=== PATIENT | male | born 1955 ===

== ENCOUNTER 2021-08-12 13:17 | Outpatient (CLI) | payer OTHER | END 2021-08-12 13:18 | disposition home or self-care (01) | LOC: LAB 13:17 | PROVIDERS: ATTEND Radiology Diagnostic Radiology | DX: Z00.00 Encounter for general adult medical examination without abnormal findings (principal) ==

== ENCOUNTER 2021-08-19 11:36 | Outpatient (CLI) | payer OTHER | END 2021-08-19 11:47 | disposition home or self-care (01) | LOC: MRI 11:36 | PROVIDERS: ATTEND Surgery | DX: M25.561 Pain in right knee (principal); M25.461 Effusion, right knee | CPT/HCPCS: 73723; A9575; 73722 ==